=== PATIENT | male | born 1985 | race Caucasian/White ===

== ENCOUNTER 2018-07-23 21:25 | Emergency (ER) | payer BC ==
[~2018-07-23] VITALS: Ht 182.9 cm; Wt 99.8 kg
[2018-07-23] MEDS ORDERED: FLEXERIL PO (21:41)
[2018-07-23] MEDS ORDERED: DEMEROL100 MG PO (21:43)
[2018-07-23] MEDS ORDERED: PREDNISONE 20 M20 MG PO (21:44)
[2018-07-24] MEDS ORDERED: NAPROSYN500 MG PO (00:39)
[2018-07-24] MEDS ORDERED: SENNA-DOCUSATE1 EAC1 PO (00:39)
[2018-07-24] MEDS ORDERED: PERCOCET 5-3251 EACH PO (00:39)
[2018-07-24 01:00] VITALS: BP 166/70
== END 2018-07-24 01:01 | disposition home or self-care (01) ==
LOC: ER 21:25
DX: M54.41 Lumbago with sciatica, right side (principal); F17.210 Nicotine dependence, cigarettes, uncomplicated